=== PATIENT | female | born 1950 | race Two or more races ===

== ENCOUNTER 2017-11-15 10:57 | Emergency (ER) | payer MEDICARE, MEDICAID ==
[~2017-11-15] VITALS: Ht 149.9 cm; Wt 45.4 kg
[2017-11-15 11:05] VITALS: BP 105/70
[2017-11-15] MEDS ORDERED: HYDROCODONE/APAP 5/325MG 1 EACH TABLET PO ONE (11:30)
[2017-11-15] MEDS ORDERED: HYDROCODONE/APAP 5/325MG 1 EACH TABLET ONE (11:50)
[2017-11-15] MEDS ORDERED: KETOROLAC TROMETHAMINE INJ 60 MG/2 ML VIAL IM ONE (13:30)
[2017-11-15] MEDS ORDERED: ACETAMINOPHEN 325 MG TABLET ONE (13:36)
[2017-11-15] MEDS ORDERED: ACETAMINOPHEN 325 MG TABLET PO ONE (14:00)
== END 2017-11-15 14:12 | disposition home or self-care (01) ==
LOC: ER 10:59
DX: M54.2 Cervicalgia (principal); R69 Illness, unspecified; R56.9 Unspecified convulsions; J45.909 Unspecified asthma, uncomplicated; Z88.2 Allergy status to sulfonamides
CPT/HCPCS: 72040; 99284; A4606; Z7610